=== PATIENT | female | born 1950 | race Two or more races ===

== ENCOUNTER 2023-04-01 11:56 | Inpatient (IN) | payer MEDICARE, BC ==
[~2023-04-01] VITALS: Ht 160 cm; Wt 98.7 kg
[2023-04-01 01:00] VITALS: BP 139/67
[2023-04-01 13:13] LABS: Basophils # (auto) 0.1 10 ^3/uL (0-0.2); Basophils % (auto) 0.8 % (0.0-2.0); Eosinophils # (auto) 0.3 10 ^3/uL (0-0.8); Eosinophils % (auto) 2.5 % (0.0-7.0); Hemoglobin 11.2 g/dL (12.2-16.2); Lymphocytes # (auto) 1.7 10 ^3/uL (0.4-5.4); Lymphocytes % (auto) 15.9 % (10.0-50.0); Mean Corpuscular Hemoglobin 31.4 pg (28.0-32.0); Mean Corpuscular Hgb Conc. 32.1 g/dL (32.0-36.0); Monocytes # (auto) 0.9 10 ^3/uL (0-1.3); Monocytes % (auto) 8.5 % (0.0-12.0); Neutrophils # (auto) 7.7 10 ^3/uL (1.6-8.6); Neutrophils % (auto) 72.3 % (37.0-80.0); Red Blood Cells 3.56 10^6/uL (4.0-5.20); Red Cell Distribution Width 15.1 % (11.8-14.3); White Blood Cell 10.6 10^3/uL (4.4-10.8)
[2023-04-01 13:31] LABS: Albumin 3.5 g/dL (3.4-5.0); Calcium 10.8 mg/dL (8.5-10.1); Potassium 4.6 mmol/L (3.5-5.1)
[2023-04-01 13:35] LABS: BUN/Creatinine Ratio 15.5 (10.0-20.0); Bilirubin, Total 0.4 mg/dL (0.2-1.0); Total Protein 6.8 g/dL (6.4-8.2)
[2023-04-01 14:12] LABS: Partial Thromboplastin Time 33.9 sec (24.6-33.4)
[2023-04-01] MEDS ORDERED: MORPHINE SULFATE INJ 2 MG/ml SYRG IV PRN (16:30)
[2023-04-01] MEDS ORDERED: NITROGLYCERIN 0.4 MG SL TAB SL PRN (16:30)
[2023-04-01] MEDS ORDERED: GLIP10TA21 PO (16:36)
[2023-04-01] MEDS ORDERED: ATEN100T PO (16:36)
[2023-04-01] MEDS ORDERED: LISI40TA16 PO (16:36)
[2023-04-01] MEDS ORDERED: AMLO1TAB22 PO (16:36)
[2023-04-01] MEDS ORDERED: FURO80TA3 PO (16:36)
[2023-04-01] MEDS ORDERED: FLUT1AER17 INH (16:36)
[2023-04-01] MEDS ORDERED: FURO40TA4 PO (16:36)
[2023-04-01] MEDS ORDERED: BUPR300T28 PO (16:36)
[2023-04-01] MEDS ORDERED: CALC0.25 PO (16:36)
[2023-04-01] MEDS ORDERED: DOXA1TAB50 PO (16:36)
[2023-04-01] MEDS ORDERED: AMLO1TAB23 PO (16:36)
[2023-04-01] MEDS ORDERED: ATOR40TA52 PO (16:36)
[2023-04-01] MEDS ORDERED: OMEP1CAP70 PO (16:36)
[2023-04-01] MEDS ORDERED: DEXTROSE (50%) 50ML SYRG IV PRN (16:45)
[2023-04-01] MEDS ORDERED: ALBUTEROL SULF 2.5 MG/0.5ML(0.5%) NEB SOLN NEB PRN (16:45)
[2023-04-01] MEDS: InsuLIN REG 1unit/0.01ml Soln (100units/ml) SC SCH ×2 (17:00→23:37)
[2023-04-01] MEDS: ACCU-CHEK COMFORT CURVE STRIP VI SCH ×2 (17:00→23:38)
[2023-04-01 17:19] LABS: Cholesterol 142 mg/dL (< 200); HDL Cholesterol 37 mg/dL (40-59); LDL Cholesterol 71 mg/dL (< 100); Triglycerides 218 mg/dL (< 150)
[2023-04-01 19:00] VITALS: BP 102/62
[2023-04-01] MEDS: HEPARIN SODIUM (PORCINE) 5000 UNITS/ML 1ML VIAL SC SCH (22:00)
[2023-04-02] VITALS (16 sets, daily range): BP systolic 102–173; BP diastolic 60–101
[2023-04-02] MEDS: ATORVASTATIN 20 MG TAB PO SCH (00:19)
[2023-04-02 06:47] LABS: Basophils # (auto) 0.1 10 ^3/uL (0-0.2); Eosinophils # (auto) 0.5 10 ^3/uL (0-0.8); Eosinophils % (auto) 6.9 % (0.0-7.0); Hematocrit 31.6 % (36.0-46.0); Hemoglobin 10.4 g/dL (12.2-16.2); Lymphocytes # (auto) 1.8 10 ^3/uL (0.4-5.4); Lymphocytes % (auto) 25.6 % (10.0-50.0); Mean Corpuscular Hgb Conc. 33.1 g/dL (32.0-36.0); Mean Corpuscular Volume 96.9 fL (80.0-100.0); Monocytes # (auto) 0.9 10 ^3/uL (0-1.3); Monocytes % (auto) 12.2 % (0.0-12.0); Neutrophils # (auto) 3.8 10 ^3/uL (1.6-8.6); Neutrophils % (auto) 54.3 % (37.0-80.0); Nucleated Red Blood Cells % 0.1 %; Red Blood Cells 3.26 10^6/uL (4.0-5.20); Red Cell Distribution Width 14.8 % (11.8-14.3)
[2023-04-02] MEDS: ACCU-CHEK COMFORT CURVE STRIP VI SCH ×3 (06:54→16:30)
[2023-04-02] MEDS: InsuLIN REG 1unit/0.01ml Soln (100units/ml) SC SCH ×4 (06:58→22:00)
[2023-04-02] MEDS ORDERED: SODIUM CHL 0.9% 1000 ML BAG XX ONE (07:00)
[2023-04-02 07:07] LABS: Potassium 4.4 mmol/L (3.5-5.1)
[2023-04-02 07:12] LABS: INR 1.03 (0.9-1.15); Partial Thromboplastin Time 35.6 sec (24.6-33.4)
[2023-04-02 07:18] LABS: Albumin 3.2 g/dL (3.4-5.0); BUN/Creatinine Ratio 15.2 (10.0-20.0); Bilirubin, Total 0.4 mg/dL (0.2-1.0); Calcium 10.4 mg/dL (8.5-10.1); Total Protein 6.2 g/dL (6.4-8.2)
[2023-04-02] MEDS: OMEPRAZOLE 40MG/20ML ORAL SUSP PO SCH (10:00)
[2023-04-02] MEDS: BUPROPION HCL 300 MG PO SCH (10:00)
[2023-04-02] MEDS: HEPARIN SODIUM (PORCINE) 5000 UNITS/ML 1ML VIAL SC SCH (10:00)
[2023-04-02] MEDS ORDERED: CALCITRIOL 0.25 MCG CAP PO SCH (10:00)
[2023-04-02] MEDS ORDERED: MIDAZOLAM HCL 2MG/2ML 2ml VIAL (1mg/ml) ONE (14:55)
[2023-04-02] MEDS ORDERED: fentaNYL CITRATE 100 MCG/2 ML VL ONE (14:55)
[2023-04-02] MEDS ORDERED: HEPARIN SODIUM (PORCINE) 5000 UNITS/ML 1ML VIAL ONE (14:55)
[2023-04-02] MEDS ORDERED: LIDOCAINE 2%HCL (LOCAL ANESTH.) INJ 10ml MDV ONE (15:03)
[2023-04-02] MEDS ORDERED: ceFAZolin 1GM/50ML 50 ML IV ONE (15:10)
[2023-04-03] MEDS ORDERED: cloNIDine HCL 0.1 MG TAB PO ONE (00:45)
[2023-04-03] MEDS: ATORVASTATIN 20 MG TAB PO SCH ×2 (00:48→21:49)
[2023-04-03] MEDS: HEPARIN SODIUM (PORCINE) 5000 UNITS/ML 1ML VIAL SC SCH ×3 (00:49→21:52)
[2023-04-03] MEDS: ACCU-CHEK COMFORT CURVE STRIP VI SCH ×5 (00:55→21:49)
[2023-04-03 05:00] VITALS: BP 150/60
[2023-04-03] MEDS: InsuLIN REG 1unit/0.01ml Soln (100units/ml) SC SCH ×4 (06:19→21:53)
[2023-04-03 07:40] LABS: Basophils # (auto) 0 10 ^3/uL (0-0.2); Basophils % (auto) 0.7 % (0.0-2.0); Eosinophils # (auto) 0.4 10 ^3/uL (0-0.8); Eosinophils % (auto) 5.2 % (0.0-7.0); Hematocrit 29.6 % (36.0-46.0); Lymphocytes # (auto) 1.4 10 ^3/uL (0.4-5.4); Lymphocytes % (auto) 19.3 % (10.0-50.0); Mean Corpuscular Hemoglobin 32.3 pg (28.0-32.0); Mean Corpuscular Hgb Conc. 33.7 g/dL (32.0-36.0); Monocytes # (auto) 0.8 10 ^3/uL (0-1.3); Monocytes % (auto) 11.7 % (0.0-12.0); Neutrophils # (auto) 4.6 10 ^3/uL (1.6-8.6); Neutrophils % (auto) 63.1 % (37.0-80.0); Red Blood Cells 3.08 10^6/uL (4.0-5.20); Red Cell Distribution Width 14.6 % (11.8-14.3); White Blood Cell 7.2 10^3/uL (4.4-10.8)
[2023-04-03 07:48] LABS: Calcium 9.6 mg/dL (8.5-10.1); Potassium 3.7 mmol/L (3.5-5.1)
[2023-04-03 09:00] VITALS: BP 150/75
[2023-04-03] MEDS: BUPROPION HCL 300 MG PO SCH (10:00)
[2023-04-03] MEDS: OMEPRAZOLE 40MG/20ML ORAL SUSP PO SCH (11:18)
[2023-04-03 13:00] VITALS: BP 143/75
[2023-04-03 17:00] VITALS: BP 162/68
[2023-04-03] MEDS: buPROPion HCL 75 MG TAB PO SCH (18:25)
[2023-04-03] MEDS: LISINOPRIL 20 MG TAB PO SCH (18:25)
[2023-04-03] MEDS: ATENOLOL 50 MG TAB PO SCH (18:26)
[2023-04-03 20:00] VITALS: BP 146/70
[2023-04-03] MEDS: amLODIPine BESYLATE 5 MG TAB PO SCH (21:49)
[2023-04-04 05:00] VITALS: BP 143/77
[2023-04-04 05:59] LABS: Hemoglobin 9.8 g/dL (12.2-16.2)
[2023-04-04] MEDS: InsuLIN REG 1unit/0.01ml Soln (100units/ml) SC SCH ×4 (06:17→21:45)
[2023-04-04] MEDS: ACCU-CHEK COMFORT CURVE STRIP VI SCH ×4 (06:17→21:41)
[2023-04-04] MEDS: buPROPion HCL 75 MG TAB PO SCH ×2 (06:24→18:40)
[2023-04-04] MEDS ORDERED: SODIUM CHL 0.9% 1000 ML BAG XX ONE (07:00)
[2023-04-04 08:00] VITALS: BP 118/88
[2023-04-04 09:33] LABS: Hepatitis B Surface Antibody Negative (Negative)
[2023-04-04] MEDS: ATENOLOL 50 MG TAB PO SCH (10:00)
[2023-04-04] MEDS: amLODIPine BESYLATE 5 MG TAB PO SCH ×2 (10:00→21:46)
[2023-04-04] MEDS: LISINOPRIL 20 MG TAB PO SCH (10:00)
[2023-04-04] MEDS: HEPARIN SODIUM (PORCINE) 5000 UNITS/ML 1ML VIAL SC SCH ×2 (10:00→21:45)
[2023-04-04 10:01] LABS: Hepatitis A Total Antibody Negative (Negative)
[2023-04-04 12:00] VITALS: BP 137/80
[2023-04-04 12:18] LABS: Hepatitis C Antibody Negative (Negative)
[2023-04-04 16:00] VITALS: BP 147/68
[2023-04-04] MEDS: PANTOPRAZOLE 40 MG TAB PO SCH (18:30)
[2023-04-04] MEDS ORDERED: EPOETIN ALFA-EPBX 10,000 UNIT/1ML VIAL SC ONE (21:00)
[2023-04-04] MEDS: ATORVASTATIN 20 MG TAB PO SCH (21:46)
[2023-04-04 22:00] VITALS: BP 151/77
[2023-04-04 23:19] VITALS: BP 157/77
[2023-04-05 05:00] VITALS: BP 160/86
[2023-04-05 06:15] VITALS: BP 151/70
[2023-04-05] MEDS: ACCU-CHEK COMFORT CURVE STRIP VI SCH ×4 (06:16→23:38)
[2023-04-05] MEDS: InsuLIN REG 1unit/0.01ml Soln (100units/ml) SC SCH ×4 (06:17→23:05)
[2023-04-05] MEDS: buPROPion HCL 75 MG TAB PO SCH ×2 (06:19→19:23)
[2023-04-05 08:00] VITALS: BP 163/86
[2023-04-05] MEDS: PANTOPRAZOLE 40 MG TAB PO SCH (10:33)
[2023-04-05] MEDS: HEPARIN SODIUM (PORCINE) 5000 UNITS/ML 1ML VIAL SC SCH ×2 (10:34→23:18)
[2023-04-05] MEDS: amLODIPine BESYLATE 5 MG TAB PO SCH ×2 (10:35→23:25)
[2023-04-05] MEDS: ATENOLOL 50 MG TAB PO SCH (10:35)
[2023-04-05] MEDS: LISINOPRIL 20 MG TAB PO SCH (10:36)
[2023-04-05 12:00] VITALS: BP 159/78
[2023-04-05] MEDS ORDERED: hydrALAZINE HCL 25 MG TAB PO PRN (14:30)
[2023-04-05 16:00] VITALS: BP 163/77
[2023-04-05] MEDS ORDERED: cloNIDine HCL 0.1 MG TAB PO ONE (17:30)
[2023-04-05] MEDS ORDERED: amLODIPine BESYLATE 5 MG TAB PO ONE (17:30)
[2023-04-05 22:00] VITALS: BP 178/75
[2023-04-05] MEDS: ATORVASTATIN 20 MG TAB PO SCH (23:16)
[2023-04-05] MEDS: ACETAMINOPHEN 325 MG TAB PO PRN (23:31)
[2023-04-06 05:45] VITALS: BP 165/77
[2023-04-06] MEDS: ACETAMINOPHEN 325 MG TAB PO PRN (06:20)
[2023-04-06] MEDS: buPROPion HCL 75 MG TAB PO SCH (06:38)
[2023-04-06] MEDS: InsuLIN REG 1unit/0.01ml Soln (100units/ml) SC SCH ×2 (06:43→12:04)
[2023-04-06] MEDS: ACCU-CHEK COMFORT CURVE STRIP VI SCH ×2 (06:44→11:30)
[2023-04-06] MEDS: amLODIPine BESYLATE 5 MG TAB PO SCH (08:51)
[2023-04-06] MEDS: ATENOLOL 50 MG TAB PO SCH (08:52)
[2023-04-06] MEDS: LISINOPRIL 20 MG TAB PO SCH (08:52)
[2023-04-06] MEDS: PANTOPRAZOLE 40 MG TAB PO SCH (08:52)
[2023-04-06] MEDS: HEPARIN SODIUM (PORCINE) 5000 UNITS/ML 1ML VIAL SC SCH (08:55)
[2023-04-06 10:13] VITALS: BP 171/85
[2023-04-06 11:25] VITALS: BP 158/81
== END 2023-04-06 13:30 | disposition home or self-care (01) | DRG 291 ==
LOC: ER 11:56 → TELE 16:34 → TELE-WESTW 22:20 → WEST WING 04-03 17:14 → TELE-WESTW 04-06 02:22
PROVIDERS: ADMIT Nurse Practitioner Family; ATTEND Internal Medicine
PROC: 0JH63XZ Insertion of Tunneled Vascular Access Device into Chest Subcutaneous Tissue and Fascia, Percutaneous Approach (ICD-10-PCS; principal; 2023-04-02)
PROC: 02HV33Z Insertion of Infusion Device into Superior Vena Cava, Percutaneous Approach (ICD-10-PCS; 2023-04-02)
PROC: B5181ZA Fluoroscopy of Superior Vena Cava using Low Osmolar Contrast, Guidance (ICD-10-PCS; 2023-04-02)
PROC: B548ZZA Ultrasonography of Superior Vena Cava, Guidance (ICD-10-PCS; 2023-04-02)
PROC: 5A1D70Z Performance of Urinary Filtration, Intermittent, Less than 6 Hours Per Day (ICD-10-PCS; 2023-04-02)
PROC: 5A1D70Z Performance of Urinary Filtration, Intermittent, Less than 6 Hours Per Day (ICD-10-PCS; 2023-04-04)
DX: I13.2 Hypertensive heart and chronic kidney disease with heart failure and with stage 5 chronic kidney disease, or end stage renal disease (principal); N18.6 End stage renal disease; E44.0 Moderate protein-calorie malnutrition; J96.10 Chronic respiratory failure, unspecified whether with hypoxia or hypercapnia; J44.9 Chronic obstructive pulmonary disease, unspecified; E11.22 Type 2 diabetes mellitus with diabetic chronic kidney disease; I50.32 Chronic diastolic (congestive) heart failure; E66.01 Morbid (severe) obesity due to excess calories; D63.1 Anemia in chronic kidney disease; Z85.3 Personal history of malignant neoplasm of breast; Z90.12 Acquired absence of left breast and nipple; Z99.2 Dependence on renal dialysis; Z68.36 Body mass index [BMI] 36.0-36.9, adult; Z88.2 Allergy status to sulfonamides
CPT/HCPCS: 36415; 71045; 76937; 80048; 80053; 80061; 82306; 82962; 83036; 83970; 84100; 84443; 85014; 85018; 85025; 85610; 85730; 86704; 86706; 86708; 86803; 87340; 90935; 99152; C1750; C1894; G0378; J0690; J1642; J1815; J2001; J2250

== ENCOUNTER 2023-07-05 14:33 | Emergency (ER) | payer MEDICARE, BC ==
[~2023-07-05] VITALS: Ht 160 cm; Wt 86.5 kg
[~2023-07-05 14:33] MED LIST: AMLO1TAB22 PO; ATEN100T PO; ATOR40TA52 PO; BUPR300T28 PO; CALC0.25 PO; DOXA1TAB50 PO; FLUT1AER17 INH; FURO40TA4 PO; FURO80TA3 PO; GLIP10TA21 PO; LISI40TA16 PO; OMEP1CAP70 PO
[2023-07-05 16:28] LABS: Basophils # (auto) 0.1 10 ^3/uL (0-0.2); Basophils % (auto) 0.5 % (0.0-2.0); Eosinophils # (auto) 0.1 10 ^3/uL (0-0.8); Eosinophils % (auto) 0.5 % (0.0-7.0); Hemoglobin 12.3 g/dL (12.2-16.2); Lymphocytes # (auto) 1.5 10 ^3/uL (0.4-5.4); Lymphocytes % (auto) 13.1 % (10.0-50.0); Mean Corpuscular Hemoglobin 32.7 pg (28.0-32.0); Mean Corpuscular Hgb Conc. 33.3 g/dL (32.0-36.0); Mean Corpuscular Volume 98.3 fL (80.0-100.0); Monocytes # (auto) 1.2 10 ^3/uL (0-1.3); Monocytes % (auto) 9.9 % (0.0-12.0); Neutrophils # (auto) 8.9 10 ^3/uL (1.6-8.6); Red Blood Cells 3.76 10^6/uL (4.0-5.20); White Blood Cell 11.7 10^3/uL (4.4-10.8)
[2023-07-05 16:48] LABS: Alanine Aminotransferase 17 U/L (7-40); Albumin 3.8 g/dL (3.2-4.8); Alkaline Phosphatase 143 U/L (46-116); Anion Gap 7 (5-15); Aspartate Aminotransferase 12 U/L (13-40); BUN/Creatinine Ratio 4.9 (10.0-20.0); Blood Urea Nitrogen 17 mg/dL (9-23); Calcium 10.4 mg/dL (8.7-10.4); Carbon Dioxide 29 mmol/L (20-30); Chloride 104 mmol/L (98-107); Glucose 79 mg/dL (74-106); Potassium 3.8 mmol/L (3.5-5.1); Sodium 140 mmol/L (136-145)
[2023-07-05 16:49] LABS: Bilirubin, Total 0.5 mg/dL (0.2-1.0); Total Protein 6.2 g/dL (5.7-8.2)
[2023-07-05] MEDS ORDERED: METOCLOPRAMIDE HCL 5MG/ml INJ 2ml VIAL IM ONE (17:00)
[2023-07-05] MEDS ORDERED: ONDANSETRON HCL 4 MG/2 ML VIAL IM ONE (17:00)
[2023-07-05 21:23] LABS: Urine Bacteria NONE SEEN /hpf (None Seen); Urine Blood Negative /uL (Negative); Urine Clarity Clear (Clear); Urine Color Yellow (Yellow); Urine Protein, UAD 3+ (Negative); Urine Specific Gravity 1.017 (1.001-1.035); Urine Urobilinogen Normal (Negative); Urine WBC 9 /hpf (0 - 5)
[2023-07-06] MEDS ORDERED: SULFAMETHOX W/TRIMETH(800/160MG) DS TAB PO ONE (00:30)
[2023-07-06] MEDS ORDERED: METOCLOPRAMIDE HCL 10 MG TAB PO ONE (00:30)
[2023-07-06] MEDS ORDERED: METO5TAB2 PO (00:35)
[2023-07-06] MEDS ORDERED: levoFLOXacin 250 MG TAB PO ONE (02:00)
[2023-07-06 02:27] VITALS: BP 114/72; PULSE 65; RESP 22; TEMP 98.5; O2SAT 99
== END 2023-07-06 02:28 | disposition home or self-care (01) ==
LOC: ER 14:33 → EDBD 14:33 → ER 07-06 02:28
DX: R11.0 Nausea (principal); I13.2 Hypertensive heart and chronic kidney disease with heart failure and with stage 5 chronic kidney disease, or end stage renal disease; E11.22 Type 2 diabetes mellitus with diabetic chronic kidney disease; N18.6 End stage renal disease; I50.89 Other heart failure; Z99.2 Dependence on renal dialysis; Z79.899 Other long term (current) drug therapy; Z88.2 Allergy status to sulfonamides
CPT/HCPCS: 36415; 80053; 81001; 85025; 96372; 99284; J2405; J2765; J8597

== ENCOUNTER → 2023-11-11 | Day surgery (SDC) | payer MEDICARE, BC ==
[2023-11-07 11:25] LABS: Basophils # (auto) 0.2 10 ^3/uL (0-0.2); Hematocrit 39.3 % (36.0-46.0); Lymphocytes # (auto) 1.5 10 ^3/uL (0.4-5.4); Neutrophils % (auto) 65.6 % (37.0-80.0); Nucleated Red Blood Cells % 0.1 %
[2023-11-07 11:27] LABS: Eosinophils # (auto) 0.3 10 ^3/uL (0-0.8); Eosinophils % (auto) 3.1 % (0.0-7.0); Hemoglobin 13.1 g/dL (12.2-16.2); Lymphocytes % (auto) 18.1 % (10.0-50.0); Mean Corpuscular Hemoglobin 34.2 pg (28.0-32.0); Mean Corpuscular Hgb Conc. 33.4 g/dL (32.0-36.0); Mean Corpuscular Volume 102.3 fL (80.0-100.0); Monocytes % (auto) 11.2 % (0.0-12.0); Neutrophils # (auto) 5.6 10 ^3/uL (1.6-8.6); Red Blood Cells 3.85 10^6/uL (4.0-5.20); Red Cell Distribution Width 16.4 % (11.8-14.3); White Blood Cell 8.5 10^3/uL (4.4-10.8)
[2023-11-07 11:51] LABS: Alanine Aminotransferase 19 U/L (7-40); Alkaline Phosphatase 187 U/L (46-116); Anion Gap 10 (5-15); Carbon Dioxide 29 mmol/L (20-30); Chloride 101 mmol/L (98-107); Glucose 165 mg/dL (74-106); Potassium 3.9 mmol/L (3.5-5.1); Sodium 140 mmol/L (136-145)
[2023-11-07 11:52] LABS: BUN/Creatinine Ratio 6.2 (10.0-20.0); Blood Urea Nitrogen 28 mg/dL (9-23)
[2023-11-07 11:53] LABS: Albumin 4.1 g/dL (3.2-4.8); Aspartate Aminotransferase 16 U/L (13-40)
[2023-11-07 11:54] LABS: Bilirubin, Total 0.4 mg/dL (0.2-1.0); Total Protein 6.8 g/dL (5.7-8.2)
[2023-11-07 11:58] LABS: Urine Bacteria NONE SEEN /hpf (None Seen); Urine Blood Negative /uL (Negative); Urine Clarity HAZY (Clear); Urine Color Yellow (Yellow); Urine Protein, UAD 2+ (Negative); Urine Specific Gravity 1.021 (1.001-1.035); Urine Urobilinogen Normal (Negative); Urine WBC 89 /hpf (0 - 5); Urine pH 5.5 (5.0-8.0)
[2023-11-07 12:36] LABS: INR 1.03 (0.9-1.15); Partial Thromboplastin Time 30.5 SEC (24.5-34.5); Prothrombin Time 10.8 sec (9.3-11.8)
[~2023-11-11] VITALS: Ht 160 cm; Wt 85.7 kg
[~2023-11-11] MED LIST changes: -AMLO1TAB22 PO; -ATEN100T PO; +BUPIVACAINE 0.5% P/F INJ 10 ML VIAL ONE; -BUPR300T28 PO; -CALC0.25 PO; -DOXA1TAB50 PO; -FLUT1AER17 INH; -FURO40TA4 PO; -FURO80TA3 PO; -GLIP10TA21 PO; +HEPARIN SODIUM (PORCINE) 5000 UNITS/ML 1ML VIAL ONE; +HYDROmorphone HCL 2 MG/ML VL/or syr IV PRN; +INSU70IN3 SC; -LISI40TA16 PO; +MULT-688 PO; -OMEP1CAP70 PO; +ONDANSETRON HCL 4 MG/2 ML VIAL IV PRN; +PROPOFOL 10 MG/ML 20 ML IV ONE; +ceFAZolin 2 GM/D5W100ml 100 ML IV ONE; +ePHEDrine SULFATE 50 MG/ML AMP ONE; +fentaNYL CITRATE 100 MCG/2 ML VL ONE
[2023-11-11 13:50] VITALS: PULSE 97; RESP 10; O2SAT 98
[2023-11-11 15:35] VITALS: BP 149/85; PULSE 84; RESP 15; O2SAT 96
== END | disposition home or self-care (01) ==
LOC: SUR 09:01
PROVIDERS: ATTEND Surgery Vascular Surgery
DX: I13.2 Hypertensive heart and chronic kidney disease with heart failure and with stage 5 chronic kidney disease, or end stage renal disease (principal); E11.22 Type 2 diabetes mellitus with diabetic chronic kidney disease; N18.6 End stage renal disease; I50.9 Heart failure, unspecified; J44.9 Chronic obstructive pulmonary disease, unspecified; G47.30 Sleep apnea, unspecified; Z87.01 Personal history of pneumonia (recurrent); Z83.49 Family history of other endocrine, nutritional and metabolic diseases; Z80.51 Family history of malignant neoplasm of kidney; Z88.2 Allergy status to sulfonamides; Z79.4 Long term (current) use of insulin; Z79.899 Other long term (current) drug therapy; Z87.891 Personal history of nicotine dependence; Z90.710 Acquired absence of both cervix and uterus; Z98.891 History of uterine scar from previous surgery; Z98.890 Other specified postprocedural states
CPT/HCPCS: 36415; 36825; 80053; 81001; 82962; 85025; 85610; 85730; 86850; 86900; 86901; J1644; J2704; J3010; J3490